=== PATIENT | male | born 1990 | race Two or more races ===

== ENCOUNTER 2024-01-14 06:29 | Emergency (ER) | payer MEDICAID, SELFPAY ==
[2024-01-14 06:30] VITALS: BMI 20.5
[2024-01-14 06:38] VITALS: BP 141/82; PULSE 60; RESP 17; TEMP 36.7; O2SAT 100
--- NOTE | 2024-01-14 06:42 | PD.EDDENTL ---
ED Dental RME/HPI General Chief complaint: Dental/Oral/Throat Stated complaint: TOOTH INFECTION Time Seen by Provider: 01/14/24 06:32 Arrival date/time: 01/14/24 06:29 33-year-old male presents emergency department today complains of tooth infection for more than 2 years patient reports no fever nausea or vomiting patient is requesting to have his tooth removed Limitations: no limitations Related Data Previous Rx's ?Medication ?Instructions ?Recorded amoxicillin 875 mg-potassium 1 tab PO BID 10 days #20 tabs 01/14/24 clavulanate 125 mg tablet ibuprofen 600 mg tablet 600 mg PO Q6H #30 tabs 01/14/24 Allergies Allergy/AdvReac Type Severity Reaction Status Date / Time No Known Allergies Allergy Verified 05/05/21 01:00 Review of Systems Review of Systems Systems Reviewed: All systems reviewed, normal except as documented Constitutional Constitutional: Reports system reviewed and no additional complaints, except as documented, Denies fever(s) and Denies headache(s) Eyes Eyes: Reports system reviewed and no additional complaints, except as documented and Denies blurry vision ENT Ears, Nose, Mouth, and Throat: Reports system reviewed and no additional complaints, except as documented, Reports dental pain, Denies headache(s), Denies nasal congestion and Denies nasal discharge Cardiovascular Cardiovascular: Reports system reviewed and no additional complaints, except as documented, Denies chest pain and Denies dyspnea Respiratory Respiratory: Reports system reviewed and no additional complaints, except as documented, Denies chest congestion, Denies cough and Denies dyspnea Gastrointestinal Gastrointestinal: Reports system reviewed and no additional complaints, except as documented and Denies abdominal pain Integumentary/Breasts Skin/Breast: Reports system reviewed and no additional complaints, except as documented and Denies rash Neurologic Neurologic: Reports system reviewed and no additional complaints, except as documented, Reports as per HPI and Denies headache(s) Past Medical History Past Medical History CARDIAC: Negative Congestive Heart Failure RESPIRATORY: Negative Chronic Obstructive Pulmonary Disease (COPD) GENITOURINARY: Negative Renal Disease ENDOCRINE: Negative Diabetes Mellitus Type 1 or Diabetes Mellitus Type 2 Family History FAMILY HISTORY: Negative Family Neurologic Problems, Family Psychiatric Problems, Family Respiratory Disorders, Family Cardiac Disorders, Family Gastrointestinal Problems, Family Cancer, Family Surgery or Family Anesthesia Reaction Social History SMOKING STATUS: Current some day smoker SUBSTANCE USE: marijuana (Weekly) and other (Used to use bath salts another similar products) ED Exam General Limitations: Present no limitations General appearance: Present alert and in no apparent distress Head Head exam: Present atraumatic Eye Eye exam: Present normal appearance, PERRL and EOMI ENT ENT exam: Present mucous membranes moist Expanded ENT Exam Teeth numbered: 1. Dental Tenderness (Missing tooth, abscess) Neck Neck exam: Present normal inspection, full ROM and trachea midline Chest Chest inspection: Present normal inspection and symmetric chest wall rise Respiratory Respiratory exam: Present normal lung sounds bilaterally Cardiovascular Cardiovascular exam: Present regular rate, normal rhythm and normal heart sounds Abdominal Exam Abdominal exam: Present soft and normal bowel sounds Extremities Exam Extremities exam: Present normal inspection and full ROM Back Exam Back exam: Present normal inspection and full ROM Neurological Exam Neurological exam: Present alert, oriented X3 and CN II-XII intact Psychiatric Psychiatric exam: Present normal affect and normal mood Skin Skin exam: Present warm, dry, intact and normal color Course Quality Measures none Vital Signs Vital signs: Vital Signs Temperature 98.0 F 01/14/24 06:38 Pulse Rate 60 01/14/24 06:38 Respiratory Rate 17 01/14/24 06:38 Blood Pressure 141/82 H 01/14/24 06:38 Pulse Oximetry (%) 100 01/14/24 06:38 Oxygen Delivery Method Room Air 01/14/24 06:38 O2 saturation 100% room air within normal limits Dental / Oral MDM Narrative MDM Narrative:: 33-year-old male presents emergency department today complains of tooth infection for more than 2 years patient reports no fever nausea or vomiting patient is requesting to have his tooth removed On exam patient well-appearing patient does not appear ill or toxic On exam patient has only a small portion of the tooth left patient appears to also have a dental abscess Patient be given a course of antibiotics and pain medication Explained to patient that we do not remove teeth here in the emergency department needs to follow-up with dentist for tooth removal Patient data External records reviewed:: [facility] previous records Clinical information provided by:: patient Social determinants that could affect healthcare access:: none Patient has the following chronic illnesses:: None How is presenting disease/condition affected by chronic disease/condition?: no chronic disease Evaluation data The following diagnostics were reviewed and interpreted by me:: other (specify) (N/A) Lab and/or radiology exams considered but not ordered:: Considered and not ordered Interpretation Summary: N/A Medications / Prescriptions Medications or Prescriptions considered but not ordered:: Given Medication administrations:: Given Consultations Consultation(s) initiated? (list below): No Diagnosis Dental Differential Diagnosis: gingival abscess, dental caries, toothache and dental abscess Most likely diagnosis given after review of the tests above:: Dental abscess Admission Indicated Admission indicated?: not indicated Admission Request Was there a request for admission?: No Disposition Plan Disposition Plan: Discharge Discharge Attestation Discharge Attestation: The patient and all family members were given an opportunity to ask questions and understood the discharge instructions. Discharge instructions specifically effects, indications for sooner follow up or return to the emergency department, and the expected course of current diagnosis. Patient condition: Stable Discharge Plan Plan Patient Disposition: HOME (Self Care) Disposition Comment: Stable Prescriptions/Referrals Prescriptions/Med Rec: New ibuprofen 600 mg tablet 600 mg PO Q6H Qty: 30 0RF amoxicillin-pot clavulanate 875-125 mg tablet 1 tab PO BID 10 Days Qty: 20 0RF Problem List Clinical Impression: Abscess, dental Patient/Caregiver Discharge Instructions Education Materials: Dental Abscess Additional Instructions: Please follow up with dentist in the next 24-48hrs for any worsening symptoms return here immediately Print Language: Greek Stand Alone Forms: Gema Award Info., Patient Portal Info Letter PA/SALES MERCHANDISER Supervising Physician PA/SALES MERCHANDISER Supervising Physician: Dr. [email or web address]
== END 2024-01-14 06:45 | disposition home or self-care (01) ==
LOC: SERX 06:58
PROVIDERS: Emergency Provider Nurse Practitioner Primary Care
DX: K04.7 Periapical abscess without sinus (principal)
CPT/HCPCS: 99281

== ENCOUNTER 2024-12-22 11:01 | Emergency (ER) | payer MEDICAID, SELFPAY ==
[2024-12-22 11:02] VITALS: BMI 20.7
--- NOTE | 2024-12-22 11:24 | EDNOTE_ITS ---
ED Male Genitalurinary RME/HPI General Chief complaint: Urogenital-Male Stated complaint: REDNESS TO GROIN AREA X4 DAYS Time Seen by Provider: 12/22/24 11:25 Arrival date/time: 12/22/24 11:01 RME / HPI RME / HPI Narrative: See MDM for Dr. Blackwell's HPI documentation. Related Data Previous Rx's ?Medication ?Instructions ?Recorded ibuprofen 600 mg tablet 600 mg PO Q6H #30 tabs 01/13 clotrimazole-betamethasone 1 1 applic topical BID 2 we eks #45 12/22/24 %-0.05 % topical cream grams Allergies Allergy/AdvReac Type Severity Reaction Status Date / Time No Known Allergies Allergy Verified 05/05/21 01:00 Review of Systems Review of Systems Systems Reviewed: All systems reviewed, normal except as documented Past Medical History Social History SMOKING STATUS: Current some day smoker SUBSTANCE USE: marijuana (Weekly) and other (Used to use bath salts another similar products) ED Exam Narrative Physical exam: See MDM for Dr. Blackwell's physical exam documentation. Course Quality Measures none Orders Category Date Time Status Chlamydia/GC/TV - PCR Stat Lab 12/22/24 12:43 Completed HIV (1&2) Antibody Rapid Stat Lab 12/22/24 11:53 Completed Hepatitis Acute Panel Stat Lab 12/22/24 11:53 Completed Herpes Simplex 1 and 2 IgG Ab* Stat Lab 12/22/24 11:53 Received IgM, Serum* Stat Lab 12/22/24 11:53 Received Syphilis Stat Lab 12/22/24 11:53 Completed Vital Signs Vital signs: Vital Signs Temperature 98.0 F 12/22/24 11:30 Pulse Rate 61 12/22/24 11:30 Respiratory Rate 16 12/22/24 11:30 Blood Pressure 174/83 H 12/22/24 11:30 Pulse Oximetry (%) 98 12/22/24 11:30 Oxygen Delivery Method Room Air 12/22/24 11:30 Pulse ox is 98% on room air which is adequate. Urogenital - Male MDM Narrative MDM Narrative:: This section includes all my notes and documentations, including HPI, PE, and ED course. Weston Blackwell MD HPI: 34-year-old male here with red rash on his genitalia. Reports itching. No dysuria or urinary frequency or penile discharge. Requests test for sexually transmitted infections. No other complaints. ROS: All negative except as documented in HPI. Physical Exam: General: Alert and oriented. Eyes: Conjunctivae and lids clear. ENT: No nasal congestion. Neck: Supple. Lungs: No respiratory distress. Skin: Warm and dry. : Erythematous maculopapular rash scattered on the penile shaft. Neuro: Alert and oriented X 3. Made clinical diagnosis of skin candidiasis. Blood and urine specimen obtained for STI. Prescribed Lotrisone cream and recommended outpatient follow-up. Based on my best medical judgment, made decision no further evaluation or treatment indicated at this time. Patient understands and agrees to the dis charge instructions customized and printed, see below. Discharge Instructions from Dr. Blackwell printed for you: 1. Apply Lotrisone cream twice a day for 14 days for your skin fungal infection. Fungus germs likes to grow and dark in most areas. Keep the area clean and dry. 2. See a private doctor on 12/25/2024 for recheck. Ask for help until you are completely better. Ask to review the results of sexually transmitted infection tests done today. Avoid sexual activity until cleared by a doctor taking care of you. 3. Seek immediate medical care with worsening or with any concerns. Weston Blackwell MD Patient data External records reviewed:: [facility] previous records Clinical information provided by:: patient Social determinants that could affect healthcare access:: none Patient has the following chronic illnesses:: None How is presenting disease/condition affected by chronic disease/condition?: no chronic disease Evaluation data The following diagnostics were reviewed and interpreted by me:: lab results Lab and/or radiology exams considered but not ordered:: None Interpretation Summary: Blood and urine specimen obtained for STI. Medications / Prescriptions Medications or Prescriptions considered but not ordered:: None Medication administrations:: None Consultations Consultation(s) initiated? (list below): No Diagnosis Urogenital Male Differential Diagnosis: other (STD/STI, fungal infection, cellulitis ) Most likely diagnosis given after review of the tests above:: Skin Candidiasis Admission Indicated Admission indicated?: not indicated Explain why admission is indicated or not indicated:: With no condition needing emergent intervention, there was no indication for admission. Admission Request Was there a request for admission?: No Disposition Plan Disposition Plan: Discharge Discharge Attestation Discharge Attestation: The patient and all family members were given an opportunity to ask questions and understood the discharge instructions. Discharge instructions specifically effects, indications for sooner follow up or return to the emergency department, and the expected course of current diagnosis. Patient condition: Stable Discharge Plan Plan Patient Disposition: HOME (Self Care) Prescriptions/Referrals Prescriptions/Med Rec: New clotrimazole-betamethasone 1-0.05 % cream 1 applic topical BID 14 Days Qty: 45 0RF No Action ibuprofen 600 mg tablet 600 mg PO Q6H Qty: 30 0RF Problem List Clinical Impression: Skin candidiasis Patient/Caregiver Discharge Instructions Discharge Activity: activity as tolerated Education Materials: ED Kimmy Skin Infection (Adult) Additional Instructions: Discharge Instructions from Dr. Blackwell printed for you: 1. Apply Lotrisone cream twice a day for 14 days for your skin fungal infection. Fungus germs likes to grow and dark in most areas. Keep the area clean and dry. 2. See a private doctor on 12/25/2024 for recheck. Ask for help until you are completely better. Ask to review the results of sexually transmitted infection tests done today. Avoid sexual activity until cleared by a doctor taking care of you. 3. Seek immediate medical care with worsening or with any concerns. Print Language: Citizen Of [place] Stand Alone Forms: Gema Award Info., Patient Portal Info Letter
[2024-12-22 11:30] VITALS: BP 174/83; PULSE 61; RESP 16; TEMP 36.7; O2SAT 98
[2024-12-22 13:07] LABS: HIV (1&2) Antibody Rapid Non-Reactive; Syphilis Nonreactive (Nonreactive)
[2024-12-22 13:43] LABS: Hepatitis A Antibody IgM Non Reactive (Non React); Hepatitis B Core Antibody IgM Non Reactive (Non React); Hepatitis B Surface Antigen Non Reactive (Non React); Hepatitis C Antibody Non Reactive (Non React)
[2024-12-22 15:11] LABS: Chlamydia trachomatis PCR Negative (Not Detect); Neisseria Gonorrhoeae DNA PCR Negative (Not Detect); Trichomonas Negative (Negative)
[2024-12-29 08:49] LABS: HSV1 IgG Type Specific Ab 34.40 INDEX
[2024-12-30 06:37] LABS: HSV2 IgG Type Specific Ab <0.90 INDEX; IgM, Serum* 215 mg/dL (50-300)
== END 2024-12-22 13:00 | disposition home or self-care (01) ==
LOC: SERX 13:18
PROVIDERS: Emergency Provider Emergency Medicine
DX: B37.49 Other urogenital candidiasis (principal)
CPT/HCPCS: 36415; 80074; 82784; 86695; 86696; 86703; 86780; 87491; 87591; 87661; 99282